=== PATIENT | male | born 1975 ===

== ENCOUNTER 2023-01-02 08:38 | Day surgery (SDC) | payer OTHER ==
[2023-01-02] MEDS ORDERED: TYLENOL ARTHRI650 MG PO (11:25)
[2023-01-02] MEDS ORDERED: MIRALAX17 GM PO (11:25)
[2023-01-02] MEDS ORDERED: KETO10TA2 PO (11:25)
[2023-01-02] MEDS ORDERED: TRAMADOL HCL50 MG PO (11:25)
== END 2023-01-02 17:30 | disposition home or self-care (01) ==
LOC: CIR.AMB 08:38
PROVIDERS: ATTEND Surgery
DX: K40.90 Unilateral inguinal hernia, without obstruction or gangrene, not specified as recurrent (principal); I10 Essential (primary) hypertension; Z20.822 Contact with and (suspected) exposure to COVID-19
CPT/HCPCS: 49507; C1781